=== PATIENT | female | born 1985 | race Caucasian/White ===

== ENCOUNTER 2017-06-29 12:03 | Outpatient (CLI) | payer MEDICARE, MEDICAID | END 2017-06-29 12:04 | disposition home or self-care (01) | LOC: BICRAD 12:03 | PROVIDERS: ATTEND Family Medicine | DX: F17.200 Nicotine dependence, unspecified, uncomplicated (principal); N92.0 Excessive and frequent menstruation with regular cycle; E16.2 Hypoglycemia, unspecified; R53.83 Other fatigue; R10.9 Unspecified abdominal pain | CPT/HCPCS: 71045 ==

== ENCOUNTER 2017-09-13 09:30 | Outpatient (CLI) | payer MEDICARE, MEDICAID ==
--- NOTE | 2017-09-13 10:34 | RAD ---
RIGHT HIP 2 VIEWS: HISTORY: Pain. COMPARISON: None. FINDINGS: No acute fracture or malalignment. There is ossification of the labrum. Normal femoral head coverag e of the acetabulum. The obturator ring is intact. SI joint and pubic symphysis are normal. 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 POS: [facility]
--- NOTE | 2017-09-13 10:37 | RAD ---
AP PELVIS 1 VIEW: HISTORY: Pelvic pain. FINDINGS: Sacral alae and pelvic rings are intact. No displaced fractures or radiopaque foreign bodies. IMPRESSION: No acute osseous abnormalities are demonstrated. POS: [facility]
--- NOTE | 2017-09-13 10:38 | RAD ---
LUMBAR SPINE SERIES 3 VIEWS: HISTORY: Low back pain and right hip pain. FINDINGS: Vertebral bodies are normal in height. Disk spaces appear well preserved and pedicles are intact. N o spondylolisthesis. IMPRESSION: Unremarkable lumbar spine series. POS: [facility]
--- NOTE | 2017-09-13 11:19 | ULT ---
ULTRASOUND ABDOMEN: HISTORY: Abdominal pain. Low back pain. R10.2. COMPARISON: None. TECHNIQUE: Real-time flores-scale and color Doppler with spectral analysis of the abdomen was performed. FINDINGS: The visualized portion of the pancreas is unremarkable. The aorta and IVC are unremarkable. The hepatic echotexture is normal. The liver measures 17.4 cm in length. The portal vein is patent with antegrade flow. The common bile duct is normal. The gallbladder is normal. The right kidney measures 11.4 x 4.6 x 6 cm without mass, hydronephrosis, or abnormal calcifications. Cholelithiasis is present. An interpolar left renal cyst is present, measuring up to 1.4 cm. The left kidney measures 10.5 x 5.6 x 5.9 cm without mass or hydronephrosis. The spleen measures 7.7 cm in length. IMPRESSION: 1. Cholelithiasis without cholecystitis. 2. Left renal cyst. POS: [facility]
--- NOTE | 2017-09-13 11:29 | ULT ---
ULTRASOUND PELVIS WITH DOPPLER: HISTORY: Pelvic pain. COMPARISON: None. TECHNIQUE: Real-time flores-scale and color Doppler with spectral analysis of the pelvis is performed with a trans abdominal approach. FINDINGS: The uterus measures 9.7 x 3.7 x 5.8 cm. Endometrial thickness is 1 cm (normal). The right ovary sachin sures 3.2 x 2.3 x 1.4 cm, and the left ovary measures 2.7 x 2.1 x 1.6 cm. Both ovaries have normal, adequate vascular flow. A septate or arcuate uterus is present. 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 MRI would be more beneficial in clarifying between the two, if clinically warranted. POS: [facility]
== END 2017-09-13 09:31 | disposition home or self-care (01) ==
LOC: ULT 09:30
PROVIDERS: ATTEND Family Medicine
DX: K80.20 Calculus of gallbladder without cholecystitis without obstruction (principal); N28.1 Cyst of kidney, acquired; M54.5 Low back pain; M25.551 Pain in right hip
CPT/HCPCS: 72100; 72170; 76700; 76856; 93976